=== PATIENT | male | born 1950 | race Caucasian/White ===

== ENCOUNTER 2018-01-24 11:43 | Emergency (ER) | payer OTHER, BC, MEDICARE, SELFPAY | END 2018-01-24 15:13 | disposition home or self-care (01) | PROVIDERS: Emergency Provider Emergency Medicine; PCP Physician Assistant; Visit Provider Emergency Medicine | DX: S80.12XD Contusion of left lower leg, subsequent encounter (principal) | CPT/HCPCS: 73502; 76882; 80053; 85025; 85610; 85730; 96374; 99058; 99284; J2270 ==

== ENCOUNTER → 2018-04-12 08:50 | Outpatient (CLI) | payer BC, MEDICARE, SELFPAY ==
[2018-04-15 07:13] LABS: Lamotrigine Lamictal 1.9 mcg/mL (4.0-18.0)
== END ==
PROVIDERS: PCP Physician Assistant; Visit Provider Specialist
DX: G40.119 Localization-related (focal) (partial) symptomatic epilepsy and epileptic syndromes with simple partial seizures, intractable, without status epilepticus (principal)
CPT/HCPCS: 36415; 80175

== ENCOUNTER 2019-10-26 10:57 | Day surgery (SDC) | payer MEDICARE, BC, SELFPAY ==
[2019-10-16 15:12] VITALS: BMI 27.3
[2019-10-26] VITALS (8 sets, daily range): BP systolic 153–164; BP diastolic 75–86; PULSE 60–66; RESP 8–16; TEMP 36–36.7; O2SAT 94–100; BMI 26.6
--- NOTE | 2019-10-26 11:39 | PM.PREOP ---
Pre-operative Note Interval Note History & Physical reviewed/Exam performed by Physician: Yes Changes to H&P: No
[2019-10-26] MEDS: LACTATED RINGERS 1,000 ML 42 ML IV ×2 (11:45→14:01)
[2019-10-26] MEDS: CLINDAMYCIN 900 MG/50 ML PIGGYBACK 50 MG IV (12:35)
--- NOTE | 2019-10-26 12:57 | SUR.OPER ---
Supine on padded OR bed, head on pillow, arms secured on padded arm boards at <90 degrees abduction, legs uncrossed, safety belt at thigh, tape over blanket over lower legs.
[2019-10-26] MEDS: BUPIVACAINE 0.5% (PF) VIAL 30 ML INJ (13:05)
[2019-10-26] MEDS: fentaNYL 100 MCG/2 ML INJ IV ×2 (14:57→15:02)
--- NOTE | 2019-10-26 15:00 | PM.OP.1 ---
Operative Date/Time/Diagnoses Date of procedure: 10/26/19 Time of procedure: 15:00 Pre-op diagnosis: Recurrence left inguinal hernia Post-op diagnosis: same (Direct) Procedure & Clinicians Procedure: Rudolph repair with onlay of mesh Same procedure as scheduled: Yes Indications: Symptomatic left inguinal hernia Surgeon: Sharad Francois Click Yes if Unassisted: Yes Anesthesia Type: General Operative Notes Findings: Large amount of colon protruding through the obliterated attenuated floor and adherent to the overlying testicular vessels and vas deferens Closure Type: primary Specimen(s): none sent Prosthetic devices, grafts, tissues, transplants, or devices: 2 x 4 in piece of Marlex mesh Estimated Blood Loss (mL): 20 Blood products transfused: none Procedure in detail: The patient is placed supine on the operating room table and underwent general LMA anesthesia. He was prepped and draped in the usual fashion. Local anesthetic was infiltrated in left lower quadrant in the region of his prior scar. Incision was made through the prior scar but also extended medially and laterally due the large size of this hernia recurrence. This dissection was carried down to the external oblique. The external oblique was opened down through to an area where was here in to underlying mesh. I had to cut through the mesh in order to expose what would be the base of the cord structures. The floor was basically obliterated by a huge hernia that appeared to contain colon. I dissected the peritoneum from the cord vessels and vas deferens. These were placed in a Juan Carlos loop and the peritoneum dissected off of it and the peritoneum and intestine was reduced as a unit along with some peritoneal fat. I then set about trying to identify structures which was quite difficult due to the altered anatomy. Identified the rectus and attached mesh medially. There was not really any mesh I could feel or see laterally. I dissected down to the pubic tubercle region and dissected back along Negro's ligament to the level of the femoral vein. This was all readily palpable though the tissues were densely adherent over it. I had very little sound trace you to work with laterally therefore I decided to perform a Rudolph repair and over late with mesh. Sutures were placed from the medial transversalis an overlying and densely attached mesh to Negro's ligament beginning at the pubic tubercle and running to the region of the femoral vein. I then transitioned my sutures anteriorly to avoid injury to the vein or narrowing it. I also placed several stitches superior and lateral to the cord structures creating a new internal ring. This was done so that the structures I had reduced could not come through the floor again. I then placed a 2 x 4 piece of mesh with an opening created for the cord structures over the floor suturing it with 0 Ethibond 2 will would normally be the rectus and to the region near Negro's ligament. It was also tacked superior and laterally to the cord to the external oblique and of inter lying internal oblique. This was a very difficult and very tedious repair. It required about 3 hours of work. This is about twice as long as normal. The scarred tissues of Andrae's layer was reapproximated over the cord with 0 Tycron and the subcu was closed with interrupted 4 0 and 3 0 Vicryl sutures. The skin was closed with aj. Dressing was applied the testicle was pulled down and the patient was awakened extubated taken recovery room good condition Complications: none Post-operative Condition: stable Disposition: PACU Plan for aftercare: In the office
[2019-10-26] MEDS: KETOROLAC 30 MG/ML VIAL IV (15:08)
== END 2019-10-26 16:12 | disposition home or self-care (01) ==
PROVIDERS: PCP Physician Assistant; Visit Provider Specialist
PROC: (CPT 49520; principal; 2019-10-26 12:15)
DX: K40.31 Unilateral inguinal hernia, with obstruction, without gangrene, recurrent (principal)
CPT/HCPCS: 49520; C1781; J1100; J1885; J2405; J2704; J3010

== ENCOUNTER 2023-03-06 09:55 | Emergency (ER) | payer MEDICARE, BC, SELFPAY ==
[2023-03-06 10:04] VITALS: BP 185/84; PULSE 62; RESP 15; TEMP 36.7; O2SAT 99; BMI 24.5
--- NOTE | 2023-03-06 10:08 | DI.RAD.S_ITS ---
PROCEDURE: XR HIP W PEL IF DONE LT 2V INDICATIONS: hip pain TECHNIQUE: AP pelvis with lateral view(s) of the left hip(s). COMPARISON: [facility], CR, XR HIP W PEL IF DONE LT 2V, 02/11/2018, 14:21. FINDINGS: Bones: No fractures or dislocations. Mild bilateral hip DJD. This is demonstrable by acetabular roof sclerosis and tiny osteophytes. Mild joint space loss. Pelvic ring appears intact. No suspicious bony lesions. Soft tissues: The visualized bowel gas pattern is normal. No suspicious soft tissue calcifications. Clips in the region of the left groin. IMPRESSION: Mild bilateral hip DJD. If clinically indicated MRI could be considered for further evaluation. Dictated by: Dannie Herrera M.D. on 03/06/2023 at 10:50 Approved by: Dannie Herrera M.D. on 03/06/2023 at 10:52
--- NOTE | 2023-03-06 10:32 | PC.NURSE ---
Pt denies injury,increasing pain for the last 3 months. Pt is scheduled to see ortho
--- NOTE | 2023-03-06 10:33 | DI.RAD.S_ITS ---
PROCEDURE: XR LUMBAR SPINE 2-3V INDICATIONS: worsening left hip pain, radicular? TECHNIQUE: 3 views of the lumbar spine were acquired. COMPARISON: None. FINDINGS: Bones: 5 [id number] vertebrae are present. There is normal bony alignment. No vertebral body compression fractures. No suspicious bony lesions. Lower lumbar facet arthropathy. Soft tissues: Overlying bowel gas pattern is normal. No suspicious soft tissue calcifications. IMPRESSION: Lower lumbar facet arthropathy. No acute bony abnormality. Comment: Lumbar spine MRI may be helpful. Dictated by: Jose Alejandro Orourke M.D. on 03/06/2023 at 11:11 Approved by: Jose Alejandro Orourke M.D. on 03/06/2023 at 11:12
--- NOTE | 2023-03-06 10:37 | ED.EXTPRO ---
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 He denies any recent injury, states that his back has been getting worse while he is at work and he has to sit down frequently due to the aching in his back and hip. He is not anticoagulated, denies any fever chills, denies any numbness or tingling but endorses occasional sciatica with shooting pain. His primary care provider used to be Zita Lira, and he has a new patient appointment with Cheyanne Mensah in April, an appointment with [facility] on March 20 for evaluation of this left hip and low back pain. States he has not had any images since his injury 3 4 years ago. Denies any urinary incontinence retention, any stool changes. States it is difficult for him to sleep, having constant pain especially in the morning. Related Data Home Medications Medication Instructions Recorded Confirmed ranitidine HCl 300 mg tablet 300 mg PO QDAY ##0 09/05/11 11/19/19 (Zantac) albuterol sulfate 90 mcg/actuation 2 puff INH Q4HP PRN Shortness Of 05/22/17 11/19/19 aerosol inhaler (Ventolin HFA) Breath ##0 cetirizine 10 mg tablet 10 mg PO QDAYP PRN Sinus 05/22/17 11/19/19 congestion ##0 fluticasone 250 mcg-salmeterol 50 1 puff INH BID ##0 05/22/17 11/19/19 mcg/dose blistr powdr for inhalation (Advair Diskus) nitroglycerin 0.4 mg sublingual 0.4 mg sublingual PRN PRN Chest 05/22/17 11/19/19 tablet (Nitrostat) Pain ##0 montelukast 10 mg tablet 10 mg PO QPM ##0 01/20/18 11/19/19 (Singulair) aspirin 81 mg tablet,delayed 81 mg PO DAILY 10/26/19 11/19/19 release (Aspir-) atorvastatin 80 mg tablet 80 mg PO DAILY 10/26/19 11/19/19 bupropion HCl 150 mg tablet,12 hr 150 mg PO DAILY 10/26/19 11/19/19 sustained-release Previous Rx's Medication Instructions Recorded gabapentin 300 mg capsule 300 mg PO BID pain #30 caps 10/26/19 oxycodone 5 mg tablet See Rx Instructions .Route 10/26/19 .COMPLEX PRN painful procedure #20 tabs hydrocodone 5 mg-acetaminophen 325 1 tab PO TID PRN pain #10 tabs 03/06/23 mg tablet lidocaine 5 % topical patch 1 patch topical DAILY PRN back 03/06/23 (Lidoderm) pain #30 ea methocarbamol 750 mg tablet 750 mg PO TID PRN muscle spasm #20 03/06/23 tabs prednisone 20 mg tablet 40 mg PO DAILY 5 days #10 tabs 03/06/23 Allergies Allergy/AdvReac Type Severity Reaction Status Date / Time cephalexin Allergy Intermediate Rash Verified 03/06/23 10:05 Penicillins Allergy Intermediate Rash Verified 03/06/23 10:05 Review of Systems <ISSAC Segura - Last Filed: 03/06/23 12:06> Review of Systems ROS Unobtainable: All systems reviewed & are unremarkable except as noted in HPI and below Patient History <ISSAC Segura - Last Filed: 03/06/23 12:06> Medical History (Updated 03/06/23 @ 12:06 by ISSAC Segura) Anxiety Asthma Chest pain Diverticulitis Hepatitis B Left inguinal hernia Sleep apnea Surgical History H/O coronary artery bypass surgery H/O craniotomy Social History household members: spouse Smoking Status: Current every day smoker alcohol intake: never Smoking Status: Current every day smoker alcohol intake frequency: holidays/special occasions only Substance Use Type: does not use Exam <ISSAC Segura - Last Filed: 03/06/23 12:06> Narrative Exam Narrative: Reviewed vitals signs and nursing notes. General: Pleasant, sitting upright in wheelchair, in no acute distress, well groomed, afebrile HEENT: symmetrical facial expressions, moist mucous membranes, neck is supple CV: regular rate and rhythm, warm extremities Respiratory: normal work of breathing, without tachypnea or hypoxia. GI: abdomen soft, nondistended, without CVA tenderness bilaterally. MSK: moves all extremities, no weakness, normal tone, nontender along his lumbar sacral spine, ambulatory with steady gait although painful to change positions leg lift from supine position exacerbates pain especially on left, no wound, abnormal range of motion or sensation deficit. Skin: brisk capillary refill, without rash or wound Neuro: clear speech and normal cognition, A&O x3, GCS 15, no focal motor or sensation deficits Initial Vital Signs Initial Vital Signs: Vital Signs Temperature 98.1 F 03/06/23 10:04 Pulse Rate 62 03/06/23 10:04 Respiratory Rate 15 03/06/23 10:04 Blood Pressure 185/84 H 03/06/23 10:04 Pulse Oximetry 99 03/06/23 10:04 Oxygen Delivery Method Room Air 03/06/23 10:04 <Lynn Hickey DO - Last Filed: 03/06/23 18:58> Initial Vital Signs Initial Vital Signs: Vital Signs Temperature 98.1 F 03/06/23 10:04 Pulse Rate 62 03/06/23 10:04 Respiratory Rate 15 03/06/23 10:04 Blood Pressure 185/84 H 03/06/23 10:04 Pulse Oximetry 99 03/06/23 10:04 Oxygen Delivery Method Room Air 03/06/23 10:04 Course <ISSAC Segura - Last Filed: 03/06/23 12:06> Orders Ordered: ED Orders 03/06/23 10:08 XR hip w pel if done LT 2V Stat 03/06/23 10:33 XR lumbar spine 2-3V Stat Discontinued Medications Hydrocodone Bitart/Acetaminophen (Hydrocodone/Acet 5/325 Tablet) 1 tab PO NOW ONE Stop: 03/06/23 10:34 Last Admin: 03/06/23 10:42 Dose: 1 tab Documented By: AT Ketorolac Tromethamine (Ketorolac 30 Mg/Ml Vial) 15 mg IM NOW ONE Stop: 03/06/23 10:34 Last Admin: 03/06/23 10:40 Dose: 15 mg Documented By: AT Lidocaine (Lidocaine Patch 1 Each Adh..Patch) 1 each TOP NOW ONE Stop: 03/06/23 10:34 Last Admin: 03/06/23 10:40 Dose: 1 each Documented By: AT Methocarbamol (Methocarbamol 500 Mg Tablet) 750 mg PO NOW ONE Stop: 03/06/23 10:34 Last Admin: 03/06/23 10:42 Dose: 750 mg Documented By: AT Prednisone (Prednisone 20 Mg Tablet) 40 mg PO NOW ONE Stop: 03/06/23 10:34 Last Admin: 03/06/23 10:42 Dose: 40 mg Documented By: AT Vital Signs Vital signs: Vital Signs - 8 hr 03/06/23 11:33 Pulse Rate 57 L Respiratory Rate 17 Blood Pressure 154/73 H Pulse Oximetry 100 Oxygen Delivery Method Room Air <Lynn Hickey DO - Last Filed: 03/06/23 18:58> Orders Ordered: ED Orders 03/06/23 10:08 XR hip w pel if done LT 2V Stat 03/06/23 10:33 XR lumbar spine 2-3V Stat Discontinued Medications Hydrocodone Bitart/Acetaminophen (Hydrocodone/Acet 5/325 Tablet) 1 tab PO NOW ONE Stop: 03/06/23 10:34 Last Admin: 03/06/23 10:42 Dose: 1 tab Documented By: AT Ketorolac Tromethamine (Ketorolac 30 Mg/Ml Vial) 15 mg IM NOW ONE Stop: 03/06/23 10:34 Last Admin: 03/06/23 10:40 Dose: 15 mg Documented By: AT Lidocaine (Lidocaine Patch 1 Each Adh..Patch) 1 each TOP NOW ONE Stop: 03/06/23 10:34 Last Admin: 03/06/23 10:40 Dose: 1 each Documented By: AT Methocarbamol (Methocarbamol 500 Mg Tablet) 750 mg PO NOW ONE Stop: 03/06/23 10:34 Last Admin: 03/06/23 10:42 Dose: 750 mg Documented By: AT Prednisone (Prednisone 20 Mg Tablet) 40 mg PO NOW ONE Stop: 03/06/23 10:34 Last Admin: 03/06/23 10:42 Dose: 40 mg Documented By: AT Vital Signs Vital signs: Vital Signs - 8 hr 03/06/23 11:33 Pulse Rate 57 L Respiratory Rate 17 Blood Pressure 154/73 H Pulse Oximetry 100 Oxygen Delivery Method Room Air MDM - Extremity (Nontraumatic) <Halina Dave Diamond, [facility] - Last Filed: 03/06/23 12:06> Imaging Data Hip Xray: Radiologist's Impression: PROCEDURE:? XR HIP W PEL IF DONE LT 2V ? INDICATIONS:? hip pain ? TECHNIQUE:? AP pelvis with lateral view(s) of the left hip(s).? ? COMPARISON:? [facility], , XR HIP W PEL IF DONE LT 2V, 02/11/2018, 14:21. ? FINDINGS:? ? Bones:? No fractures or dislocations.? Mild bilateral hip DJD.? This is demonstrable by acetabular roof sclerosis and tiny osteophytes.? Mild joint space loss.? Pelvic ring appears intact.? No suspicious bony lesions.? ? Soft tissues:? The visualized bowel gas pattern is normal.? No suspicious soft tissue calcifications.? Clips in the region of the left groin.? ? ? IMPRESSION:? Mild bilateral hip DJD. ? If clinically indicated MRI could be considered for further evaluation. ? ? Dictated by: Dannie Herrera M.D. on 03/06/2023 at 10:50 ? ? Approved by: Dannie Herrera M.D. on 03/06/2023 at 10:52 ? Lumbar XR: Radiologist's Impression: PROCEDURE:? XR LUMBAR SPINE 2-3V ? INDICATIONS:? worsening left hip pain, radicular? ? TECHNIQUE:? 3 views of the lumbar spine were acquired.? ? COMPARISON:? None. ? FINDINGS:? ? Bones:? 5 [id number] vertebrae are present.? There is normal bony alignment.? No vertebral body compression fractures.? No suspicious bony lesions.? Lower lumbar facet arthropathy. ? Soft tissues:? Overlying bowel gas pattern is normal.? No suspicious soft tissue calcifications.? ? ? IMPRESSION:? Lower lumbar facet arthropathy.? No acute bony abnormality. ? Comment:? Lumbar spine MRI may be helpful.? ? ? Dictated by: Jose Alejandro Orourke M.D. on 03/06/2023 at 11:11 ? ? Approved by: Jose Alejandro Orourke M.D. on 03/06/2023 at 11:12 ? MDM Narrative Medical decision making narrative: Chief Complaint: Left hip and low back pain Primary historian: Patient Multiple etiologies for patient's complaint considered including, but not limited to: disc injury/herniation, radiculopathy, muscular sprain, chronic pain, malignancy, spondyloarthropathy, nerve compression, acute fracture, urinary tract infection, osteoarthritis, degenerative disc disease, cauda equina, osteomyelitis, epidural abscess, spinal stenosis, ligamental injury. I have reviewed the patient's vital signs and nursing notes as well as prior records if available. Prior Charts reviewed: I have independently reviewed the patient's vital signs and nursing notes as well as prior records if available. My interpretation of imaging: HipX-ray is negative for osseous abnormality, degenerative joint disease bilaterally lumbar spine x-ray no acute osseous abnormality, degenerative facet disease Course of care: patient has scheduled follow-up with orthopedics at [facility] on March 20 and a primary care appointment in April with air Mensah. I recommend that he follow-up with his providers, obtain a referral for physical therapy and MRI if needed, he may benefit from steroid injection. Recommend Tylenol, ibuprofen, given a short course of hydrocodone, lidocaine patches, prednisone for radicular pain, and methocarbamol. Suspect likely musculoskeletal etiology and acute exacerbation of chronic low back pain. Patient's straight leg raise test was positive. No back pain red flags on history or physical. No history of IV substance use, or bony tenderness to palpation, no trauma, no bony tenderness to palpation, and are afebrile. No bowel or urinary incontinence or retention, no saddle anesthesia, no new/worsening distal weakness, decreased reflexes or foot drop. Pt is nontoxic appearing. Patient has soft tissue tenderness to palpation. Pt is neurovascularly intact distally, without decreased reflexes or strength, and without immunosuppression or evidence of infection, peritoneal signs, hypertensive crisis, incontinence, or meningeal signs. Patient's symptoms improved over duration of stay with above-stated therapies. Discharge diagnosis, return precautions and plan discussed with patient followed by verbalization of understanding. Social considerations that may affect disposition: none Questions are addressed and there is agreement with the plan and for follow-up with PCP and with Orthopedics for outpatient physical therapy and advanced imaging if indicated. Patient is appropriate for outpatient management. MIPS: This encounter doesn't have any diagnosis' associated with MIPS criteria. Discharge Plan Departure Patient Disposition: Home Clinical Impression: Acute lumbar radiculopathy, Facet arthropathy, lumbar Acute hip pain Qualifiers: Laterality: left Qualified Code(s): M25.552 - Pain in left hip Degenerative joint disease (DJD) of hip Qualifiers: Osteoarthritis type: unspecified Laterality: bilateral Qualified Code(s): M16.0 - Bilateral primary osteoarthritis of hip Instructions: Lumbar Radiculopathy Activity Restrictions/Additional Instructions: *You have been diagnosed with low back pain and hip pain, it shows arthritis in your lumbar spine, and degenerative disc disease with facet degeneration. No compression fractures. There is normal alignment. Please follow-up at your orthopedic appointment and with your primary care provider. Please call her and ask for referral to physical therapy and for an MRI so you can have these completed by the time you get into Orthopedics. Please continue with your PPI to protect your stomach. I hope you feel better soon, return for new worsening symptoms, weakness, urinary incontinence, groin numbness or tingling, or urinary retention. Please take muscle relaxer every 8 hours as needed for spasms, it will help you sleep, use caution when combining with hydrocodone as that will also cause sedation and you could be very sleepy with both of them on board. Please take a stool softener while taking hydrocodone so that you do not become constipated and have worsening back pain. Please take your prednisone with food and water daily. I hope you feel better soon, return for new worsening pain. *What to do: *Please continue to take your regular medications as directed. [x ] New medication prescriptions sent to your pharmacy: [[facility] ] [ ] New medication written as a paper prescription [ ] No new medications given *Please call and schedule follow up with your primary care provider in 2-3 days, at least for an update. Let them know you were seen in the Emergency Department for the above problem. We will electronically transmit a record of today's note if your PCP or specialist is in our system. *If you do not have a primary care provider please contact [phone] to establish care with one of the [facility] primary care providers. *Return to the Emergency Department for worsening symptoms, inability to keep liquids down, fever greater than 101F, chills, or other concerning symptom. Prescriptions: New prednisone 20 mg tablet 40 mg PO DAILY 5 Days Qty: 10 0RF hydrocodone-acetaminophen 5-325 mg tablet 1 tab PO TID PRN (Reason: pain) Qty: 10 0RF methocarbamol 750 mg tablet 750 mg PO TID PRN (Reason: muscle spasm) Qty: 20 0RF lidocaine [Lidoderm] 5 % adhesive patch,medicated 1 patch topical DAILY PRN (Reason: back pain) Qty: 30 0RF Rx Instructions: leave on most painful area for up to 12 hrs No Action ranitidine HCl [Zantac] 300 MG tablet 300 mg PO QDAY Qty: 0 fluticasone propion-salmeterol [Advair Diskus] 250 MCG/50 MCG blister with device 1 puff INH BID Qty: 0 albuterol sulfate [Ventolin HFA] 90 MCG/PUFF HFA aerosol inhaler 2 puff INH Q4HP PRN (Reason: Shortness Of Breath) Qty: 0 nitroglycerin [Nitrostat] 0.4 MG tablet, sublingual 0.4 mg Sublingual PRN PRN (Reason: Chest Pain) Qty: 0 cetirizine 10 MG tablet 10 mg PO QDAYP PRN (Reason: Sinus congestion) Qty: 0 montelukast [Singulair] 10 MG tablet 10 mg PO QPM Qty: 0 bupropion HCl 150 mg tablet sustained-release 12 hr 150 mg PO DAILY atorvastatin 80 mg tablet 80 mg PO DAILY aspirin [Aspir-81] 81 mg Tablet,Delayed Release (Dr/Ec) 81 mg PO DAILY oxycodone 5 mg tablet See Rx Instructions .ROUTE .COMPLEX PRN (Reason: painful procedure) Qty: 20 0RF Rx Instructions: Take 1 or 2 pills every 6 hours if needed for pain. May constipate. gabapentin 300 mg capsule 300 mg PO BID Qty: 30 0RF Referrals: [facility] [Provider Group] Cheyanne Radford PA-C [Primary Care Provider] - Stand Alone Forms: Patient Portal/API <Lynn Hickey DO - Last Filed: 03/06/23 18:58> Cosign ED Attending Emilianoature Attestation: I was immediately available in the department for consultation. Documentation has been reviewed.
[2023-03-06] MEDS: LIDOCAINE PATCH 1 EACH ADH..PATCH TOP (10:40)
[2023-03-06] MEDS: KETOROLAC 30 MG/ML VIAL 15 MG IM (10:40)
[2023-03-06] MEDS: HYDROCODONE/ACET 5/325 TABLET 1 TAB PO (10:42)
[2023-03-06] MEDS: predniSONE 20 MG TABLET 40 MG PO (10:42)
[2023-03-06] MEDS: methocarbamoL 500 MG TABLET 750 MG PO (10:42)
[2023-03-06 11:33] VITALS: BP 154/73; PULSE 57; RESP 17; O2SAT 100
== END 2023-03-06 11:42 | disposition home or self-care (01) ==
PROVIDERS: Emergency Provider Nurse Practitioner Critical Care Medicine; PCP Physician Assistant
DX: M54.16 Radiculopathy, lumbar region (principal); M16.0 Bilateral primary osteoarthritis of hip; M47.816 Spondylosis without myelopathy or radiculopathy, lumbar region; M25.552 Pain in left hip
CPT/HCPCS: 72100; 73502; 96372; 99283; 99284; J1885

== ENCOUNTER → 2023-07-10 07:56 | Outpatient (CLI) | payer MEDICARE, BC, SELFPAY ==
[2023-07-10 10:05] LABS: BUN Creatinine Ratio 13.4 (6-22); Blood Urea Nitrogen 24 mg/dL (9-20); Calcium 9.3 mg/dL (8.4-10.2); Carbon Dioxide 24 mmol/L (22-32); Chloride 95 mmol/L (98-107); Estimated Glomerular Filt Rate 40 mL/min (>60); Glucose 95 mg/dL (80-110); HEMOLYSIS < 15 (0-50); Sodium 130 mmol/L (137-145)
== END ==
PROVIDERS: PCP Physician Assistant; Referring Provider Internal Medicine; Visit Provider Internal Medicine
DX: I11.9 Hypertensive heart disease without heart failure (principal)
CPT/HCPCS: 36415; 80048

== ENCOUNTER → 2024-08-28 07:51 | Outpatient (CLI) | payer MEDICARE, BC, SELFPAY ==
--- NOTE | 2024-08-28 | DI.CT.S_ITS ---
PROCEDURE: CT LUNG LOW DOSE SCREENING INDICATIONS: Personal history of nicotine dependence TECHNIQUE: Noncontrast 2.0-2.5 mm thick sections acquired from the pulmonary apices to the posterior costophrenic angles. 7 mm thick axial MIP, and 5 mm coronal and sagittal reformats were then acquired. For radiation dose reduction, the following was used: automated exposure control, adjustment of mA and/or kV according to patient size. COMPARISON: None. FINDINGS: Image quality: Diagnostic. Lower Neck: No enlarged lymph nodes. Thyroid: No thyroid nodules which require sonographic follow up, per consensus guidelines. Axillae: No enlarged lymph nodes. Chest Wall: Median sternotomy wires. Bones: No acute vertebral body compression fractures. Multilevel spondylitic changes throughout the imaged spine. No suspicious osseous lesions. Lungs and Pleura: No pneumothorax or pleural effusions. Moderate upper lobe predominant pulmonary emphysematous changes. Bilateral upper lobe pulmonary pleural-parenchymal scarring most pronounced in the apices. No septal thickening or nodularity. Mild bibasilar atelectasis. No suspicious pulmonary nodules. Visualized airways appear clear. Heart: Heart size is normal. No pericardial effusion. Multivessel atherosclerotic calcifications of the coronary arteries. Thoracic Vessels: The aorta and pulmonary arteries demonstrate normal size. Atherosclerotic calcifications of the aortic arch are present. Mediastinum and Jackeline: No enlarged lymph nodes. Esophagus: No wall thickening. No hiatal hernia. Upper Abdomen: Incompletely visualized hypodensity in the medial aspect of the left hepatic lobe likely representing a cyst or hemangioma. Other visualized upper abdomen solid organs and bowel loops appear normal. IMPRESSION: No suspicious pulmonary nodules. LUNG-RADS 1; continued annual screening, if eligible. Moderate upper lobe predominant pulmonary emphysematous changes with bilateral upper lobe predominant scarring. Attention can be made on follow-up imaging. Clinically Significant Non-pulmonary Findings: Moderate atherosclerotic vascular calcifications. Dictated by: Norm Cantor M.D. on 08/28/2024 at 10:54 Approved by: Norm Cantor M.D. on 08/28/2024 at 10:58
== END ==
PROVIDERS: PCP Physician Assistant; Referring Provider Family Medicine; Visit Provider Family Medicine
DX: I25.10 Atherosclerotic heart disease of native coronary artery without angina pectoris (principal); Z12.2 Encounter for screening for malignant neoplasm of respiratory organs; I70.0 Atherosclerosis of aorta; Z87.891 Personal history of nicotine dependence
CPT/HCPCS: 71271